=== PATIENT | male | born 1940 | race Hispanic/Latino ===

== ENCOUNTER 2018-01-07 15:38 | Emergency (ER) | payer OTHER ==
[2018-01-07] MEDS ORDERED: ALBUTEROL 2.5 MG/3 ML NEB SOL ONE (16:51)
[2018-01-07] MEDS ORDERED: FUROSEMIDE 40 MG/4 ML VIAL ONE (16:52)
[2018-01-07] MEDS ORDERED: CARVEDILOL 6.25 MG TAB ONE (16:52)
--- NOTE | 2018-01-07 16:55 | RAD REPORT ---
EXAM DESCRIPTION: RAD - Chest Single View - 01/07/2018 4:37 pm CLINICAL HISTORY: Dyspnea, hypertension COMPARISON: November 2016 TECHNIQUE: AP portable chest image was obtained 1623 hours . FINDINGS: No peripheral mass or consolidation. Lung markings are similar to the comparison. Cardiac silhouette has enlarged slightly. No vascular engorgement or acute findings of failure. Trachea is mi dline. Sternotomy wires are in place. No measurable pleural effusion and no pneumothorax. No gross [place] abnormality seen. No acute aortic findings suspected. IMPRESSION: No acute cardiopulmonary process. Mild cardiomegaly is present increased slightly from comparison. Acute failure or volume overload not suspected.
[2018-01-07 17:01] LABS: Absolute Lymphocytes (CBC) 2.5 K/uL (0.7-4.9); Absolute Monocytes 0.5 K/uL (0.1-1.3); Basophils % 0.7 % (0-1.3); Eosinophils % 4.2 % (0-4.4); Hematocrit 37.3 % (39.6-49.0); Lymphocytes % 39.8 % (15.3-44.8); MCH 31.6 pg (27.0-35.0); MCV 96.5 fL (80-100); MPV 7.9 fL (7.6-11.3); Monocytes % 7.7 % (3.3-12.3); RBC Red Blood Cell Count 3.87 M/uL (4.33-5.43)
[2018-01-07 17:04] LABS: Protime INR 1.05
[2018-01-07 17:24] LABS: ALT/SGPT 21 U/L (12-78); AST/SGOT 14 U/L (15-37); Albumin 3.7 g/dL (3.4-5.0); Alkaline Phosphatase 78 U/L (45-117); BUN Blood Urea Nitrogen 15 mg/dL (7-18); Bicarbonate 28 mmol/L (21-32); Bilirubin Direct 0.1 mg/dL (0-0.2); Bilirubin Total 0.5 mg/dL (0.2-1.0); Glucose Level 112 mg/dL (74-106); Magnesium 2.3 mg/dL (1.8-2.4); NT PRO-BNP 725 pg/mL (<450); Potassium 3.4 mmol/L (3.5-5.1); Protein, Total 7.7 g/dL (6.4-8.2); Sodium Level 138 mmol/L (136-145)
--- NOTE | 2018-01-07 17:31 | ER ---
Nurse's Notes [facility] Name: Elliot Magallanes Age: 77 yrs Sex: Male : 1940 Arrival Date: 01/07/2018 Time: 15:42 Bed 5 Private MD: Diagnosis: Wheezing;Essential (primary) hypertension Presentation: 01/07 15:42 Presenting complaint: Patient states: went to my PCP today, at the clinic my BP was hj over 200's, when i went home, my BP was at 175's; denies headache; denies chest pain; was advised to go the the ED for eval;. Transition of care: patient was not received from another setting of care. Onset of symptoms was January 07, 2018. Risk Assessment: Do you want to hurt yourself or someone else? Patient reports no desire to harm self or others. Initial Sepsis Screen: Does the patient meet any 2 criteria? No. Patient's initial sepsis screen is negative. Does the patient have a suspected source of infection? No. Patient's initial sepsis screen is negative. Care prior to arrival: None. 15:42 Method Of Arrival: Ambulatory 15:42 Acuity: SYLVESTER 3 hj Triage Assessment: 15:47 General: Appears in no apparent distress. uncomfortable, Behavior is calm, cooperative, hj appropriate for age. Pain: Denies pain. Historical: - Allergies: 15:47 No Known Allergies; hj - Home Meds: 15:47 amlodipine 10 mg tab 1 tab once daily [Active]; Eliquis 2.5 mg oral tab 1 tab 2 times hj per day [Active]; aspirin 81 mg Oral TbEC 1 tab once daily [Active]; atorvastatin 40 mg oral tab 1 tab once daily [Active]; carvedilol 25 mg oral tab 1 tab 2 times per day [Active]; ferrous sulfate 325 mg (65 mg iron) Oral tab [Active]; metformin 500 mg Oral tab 1 tab 2 times per day [Active]; hydralazine 25 mg Oral tab 1 tab 4 times per day [Active]; losartan-hydrochlorothiazide 100-12.5 mg oral tab 1 tab once daily [Active]; Lasix 20 mg Oral tab 1 tab once daily [Active]; - PMHx: 15:47 Hypertension; Hyperlipidemia; Diabetes - NIDDM; CHF; hj - 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 - Social history:: Smoking status: Patient/guardian denies using tobacco, Patient/guardian denies using alcohol. - Ebola Screening: : Patient negative for fever greater than or equal to 101.5 degrees Fahrenheit, and additional compatible Ebola Virus Disease symptoms Patient denies exposure to infectious person Patient denies travel to an Ebola-affected area in the 21 days before illness onset. Screenin:48 Abuse screen: Denies threats or abuse. Denies injuries from another. Nutritional hj screening: No deficits noted. Tuberculosis screening: No symptoms or risk factors identified. Fall Risk None identified. Assessment: 15:59 General: Appears in no apparent distress. comfortable, Behavior is calm, cooperative, ch appropriate for age. Pain: Denies pain. Neuro: No deficits noted. Cardiovascular: Heart tones S1 S2 present Capillary refill < 3 seconds in bilateral fingers toes Clubbing of nail beds is present JVD is present Patient's skin is warm and dry. Pulses are all present. Edema is 2+ to left midcalf, left ankle, right midcalf and right ankle pitting to left midcalf, left ankle, right midcalf and right ankle. Respiratory: Reports cough that is productive, Airway is patent Respiratory effort is even, labored, Breath sounds are coarse Breath sounds with crackles Breath sounds with wheezes bilaterally. GI: No signs and/or symptoms were reported involving the gastrointestinal system. Derm: Skin is pink, warm \T\ dry. Musculoskeletal: No signs and/or symptoms reported regarding the musculoskeletal system. 16:59 Reassessment: Patient appears in no apparent distress at this time. No changes from previously documented assessment. Patient and/or family updated on plan of care and expected duration. Pain level reassessed. 17:58 Reassessment: Patient appears in no apparent distress at this time. Patient and/or family updated on plan of care and expected duration. Pain level reassessed. Patient is alert, oriented x 3, equal unlabored respirations, skin warm/dry/pink. Patient denies pain at this time. Patient states feeling better. Patient states symptoms have improved. Vital Signs: 15:47 BP 185 / 71; Pulse 72; Resp 18; Temp 98.6(O); Pulse Ox 94% on R/A; Weight 105.69 kg; hj Height 6 ft. 0 in. (182.88 cm); Pain 0/10; 17:01 BP 162 / 77; Pulse 63; Resp 24; Temp 98.5; Pulse Ox 99% on Nebulizer Mask; Pain 0/10; ch 17:58 BP 172 / 88; Pulse 71; Resp 20; Temp 98.3; Pulse Ox 96% on R/A; Pain 0/10; ch 15:47 Body Mass Index 31.60 (105.69 kg, 182.88 cm) hj ED Course: 15:42 Patient arrived in ED. mr 15:44 Violette Rodriguez, RN is Primary Nurse. ch 15:44 Triage completed. hj 15:48 Arm band placed on right wrist. hj 15:48 Patient has correct armband on for positive identification. Placed in gown. Bed in low hj position. Call light in reach. Side rails up X 1. Adult w/ patient. 15:50 security monitor on. Pulse ox on. NIBP on. ch 15:50 Warm blanket given. ch 15:51 Alberto Rios MD is Attending Physician. gs 15:58 Chente Mariano PA is PHCP. jr8 16:20 EKG done, by technical project coordinator. reviewed by Chente ADAME. sm3 16:33 X-ray completed. Portable x-ray completed in exam room. Patient tolerated procedure kp1 well. 16:35 Inserted saline lock: 18 gauge in right forearm, using aseptic technique. Blood ch collected. 16:36 XRAY Chest (1 view) In Process Unspecified. EDMS 16:59 Lab(s) recollected, by ED staff, sent to lab. ch 18:00 No provider procedures requiring assistance completed. IV discontinued, intact, ch bleeding controlled, No redness/swelling at site. Pressure dressing applied. 18:36 Primary Nurse role handed off by Violette Rodriguez, RN ag Administered Medications: 17:00 Drug: Albuterol 2.5 mg Route: Inhalation; ch 17:00 Drug: Lasix 40 mg Route: IVP; Site: right forearm; ch 18:01 Follow up: Response: No adverse reaction; Marked relief of symptoms ch 17:00 Drug: carvedilol 25 mg Route: PO; ch 18:01 Follow up: Response: No adverse reaction; Marked relief of symptoms ch 17:20 Drug: Albuterol 2.5 mg Route: Inhalation; 17:35 Drug: Albuterol 2.5 mg Route: Inhalation; 18:02 Follow up: Response: No adverse reaction; Marked relief of symptoms Outcome: 17:29 Discharge ordered by MD. zuniga 18:00 Discharged to home ambulatory, with family. 18:00 Condition: improved 18:00 Discharge instructions given to patient, family, Instructed on discharge instructions, follow up and referral plans. no drinking with medication, medication usage, Demonstrated understanding of instructions, follow-up care, medications, Prescriptions given X 4. 18:00 Patient left the ED. 18:38 Patient left the ED. ag Signatures: Dispatcher [employer] EDMS Violette Rodriguez, BRAD RN Yolis Vargas mr Chente Mariano PA PA jr8 Gallardo, Ana Vishal Pederson RN RN Hannah Stoddard 1 Alberto Rios MD MD gs Montes, Shakira 3
--- NOTE | 2018-01-07 17:31 | EDPHYS ---
Physician Documentation [facility] Name: Elliot Magallanes Age: 77 yrs Sex: Male : 1940 Arrival Date: 01/07/2018 Time: 15:42 Bed 5 Private MD: ED Physician Alberto Rios HPI: 01/07 16:21 This 77 yrs old Male presents to ER via Ambulatory with complaints of High jr8 Blood Pressure. 16:21 Onset: The symptoms/episode began/occurred at an unknown time. Associated signs and jr8 symptoms: The patient has no apparent associated signs or symptoms. Severity of symptoms: At its worst the blood pressure was moderate, in the emergency department the blood pressure is improved. history of HTN. The patient has been recently seen by a physician:. Patient stated that he has had slight wheeze in chest for the past couple of days. Feels as if he has cold. Had gone to PCP office today and noticed he had elevated BP and sent him to ED for further evaluation. Denies CP or shortness of breath currently. Stated that he has been out of his carvedilol and lasix for about 1 week . Historical: - Allergies: 15:47 No Known Allergies; hj - Home Meds: 15:47 amlodipine 10 mg tab 1 tab once daily [Active]; Eliquis 2.5 mg oral tab 1 tab 2 times hj per day [Active]; aspirin 81 mg Oral TbEC 1 tab once daily [Active]; atorvastatin 40 mg oral tab 1 tab once daily [Active]; carvedilol 25 mg oral tab 1 tab 2 times per day [Active]; ferrous sulfate 325 mg (65 mg iron) Oral tab [Active]; metformin 500 mg Oral tab 1 tab 2 times per day [Active]; hydralazine 25 mg Oral tab 1 tab 4 times per day [Active]; losartan-hydrochlorothiazide 100-12.5 mg oral tab 1 tab once daily [Active]; Lasix 20 mg Oral tab 1 tab once daily [Active]; - PMHx: 15:47 Hypertension; Hyperlipidemia; Diabetes - NIDDM; CHF; hj - 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 - Social history:: Smoking status: Patient/guardian denies using tobacco, Patient/guardian denies using alcohol. - Ebola Screening: : Patient negative for fever greater than or equal to 101.5 degrees Fahrenheit, and additional compatible Ebola Virus Disease symptoms Patient denies exposure to infectious person Patient denies travel to an Ebola-affected area in the 21 days before illness onset. ROS: 16:21 Eyes: Negative for injury, pain, redness, and discharge, ENT: Negative for injury, jr8 pain, and discharge, Neck: Negative for injury, pain, and swelling, Cardiovascular: Negative for chest pain, palpitations, and edema, Abdomen/GI: Negative for abdominal pain, nausea, vomiting, diarrhea, and constipation, Back: Negative for injury and pain, MS/Extremity: Negative for injury and deformity, Skin: Negative for injury, rash, and discoloration, Neuro: Negative for headache, weakness, numbness, tingling, and seizure. 16:21 Respiratory: Positive for wheezing, Negative for cough, dyspnea on exertion, hemoptysis, orthopnea, shortness of breath. Exam: 16:21 Eyes: Pupils equal round and reactive to light, extra-ocular motions intact. Lids and jr8 lashes normal. Conjunctiva and sclera are non-icteric and not injected. Cornea within normal limits. Periorbital areas with no swelling, redness, or edema. ENT: Nares patent. No nasal discharge, no septal abnormalities noted. Tympanic membranes are normal and external auditory canals are clear. Oropharynx with no redness, swelling, or masses, exudates, or evidence of obstruction, uvula midline. Mucous membranes moist. Neck: Trachea midline, no thyromegaly or masses palpated, and no cervical lymphadenopathy. Supple, full range of motion without nuchal rigidity, or vertebral point tenderness. No Meningismus. Abdomen/GI: Soft, non-tender, with normal bowel sounds. No distension or tympany. No guarding or rebound. No evidence of tenderness throughout. Back: No spinal tenderness. No costovertebral tenderness. Full range of motion. Skin: Warm, dry with normal turgor. Normal color with no rashes, no lesions, and no evidence of cellulitis. MS/ Extremity: Pulses equal, no cyanosis. Neurovascular intact. Full, normal range of motion. Neuro: Awake and alert, GCS 15, oriented to person, place, time, and situation. Cranial nerves II-XII grossly intact. Motor strength 5/5 in all extremities. Sensory grossly intact. Cerebellar exam normal. Normal gait. 16:21 Cardiovascular: Rate: normal, Rhythm: regular, Pulses: Pulses are 2+ in right radial artery and left radial artery. Heart sounds: normal, normal S1and S2, no S3 or S4, no murmur, no rub, no gallop, Edema: 2+ edema to level of left midcalf, left ankle, right midcalf and right ankle, JVD: is not appreciated. 16:21 Respiratory: the patient does not display signs of respiratory distress, Respirations: normal, symetrical, no use of accessory muscles, no grunting, no evidence of nasal flaring, no prolonged exhalations, no pursed lip breathing, no retractions, no shallow respirations, no splinting, no tachypnea, Breath sounds: wheezing: expiratory that is mild, is heard diffusely. 16:53 ECG was reviewed by the Attending Physician. [facility] Vital Signs: 15:47 BP 185 / 71; Pulse 72; Resp 18; Temp 98.6(O); Pulse Ox 94% on R/A; Weight 105.69 kg; hj Height 6 ft. 0 in. (182.88 cm); Pain 0/10; 17:01 BP 162 / 77; Pulse 63; Resp 24; Temp 98.5; Pulse Ox 99% on Nebulizer Mask; Pain 0/10; ch 17:58 BP 172 / 88; Pulse 71; Resp 20; Temp 98.3; Pulse Ox 96% on R/A; Pain 0/10; ch 15:47 Body Mass Index 31.60 (105.69 kg, 182.88 cm) MDM: 16:01 Patient medically screened. [facility] 17:27 Data reviewed: vital signs, nurses notes, lab test result(s), EKG, radiologic studies, 8 plain films, and as a result, I will discharge patient. Data interpreted: Pulse oximetry: on room air is 99 %. Interpretation: normal. Counseling: I had a detailed discussion with the patient and/or guardian regarding: the historical points, exam findings, and any diagnostic results supporting the discharge/admit diagnosis, lab results, radiology results, the need for outpatient follow up, a family practitioner, to return to the emergency department if symptoms worsen or persist or if there are any questions or concerns that arise at home. Response to treatment: the patient's symptoms have markedly improved after treatment. ED course: Patient still without shortness of breath, chest pain, dizziness, visual disturbances, nausea, numbness, or tingling. Will send home on medication to help with wheezing. Will prescribe blood pressure medication and lasix for him to insure he is taking those as prescribed by his PCP . 01/07 16:07 Order name: Basic Metabolic Panel; Complete Time: 17:24 01/07 16:07 Order name: CBC with Diff; Complete Time: 17:05 01/07 16:07 Order name: LFT's; Complete Time: 17:24 01/07 16:07 Order name: Magnesium; Complete Time: 17:24 01/07 16:07 Order name: NT PRO-BNP; Complete Time: 17:24 01/07 16:07 Order name: PT-INR; Complete Time: 17:05 01/07 16:07 Order name: XRAY Chest (1 view); Complete Time: 16:58 01/07 16:07 Order name: EKG; Complete Time: 16:08 01/07 16:07 Order name: Cardiac monitoring; Complete Time: 18:02 01/07 17:32 Order name: Urine Dipstick--Ancillary (enter results); Complete Time: 17:53 1 01/07 16:07 Order name: EKG - Nurse/Tech; Complete Time: 18:02 01/07 16:07 Order name: IV Saline Lock; Complete Time: 18:02 01/07 16:07 Order name: Labs collected and sent; Complete Time: 18:02 01/07 16:07 Order name: O2 Per Protocol; Complete Time: 18:02 01/07 16:07 Order name: O2 Sat Monitoring; Complete Time: 18:02 01/07 16:07 Order name: Urine Dipstick-Ancillary (obtain specimen); Complete Time: 17:31 jr8 EC:53 Rate is 70 beats/min. Rhythm is regular, Sinus Rhythm. [place] interval is prolonged at 270 jr8 msec. QRS interval is normal at 92 msec. QT interval is prolonged at 466 msec. No Q waves. T waves are Normal. No ST changes noted. Clinical impression: 1st degree heart block. Interpreted by me. Reviewed by me. Administered Medications: 17:00 Drug: Albuterol 2.5 mg Route: Inhalation; 17:00 Drug: Lasix 40 mg Route: IVP; Site: right forearm; 18:01 Follow up: Response: No adverse reaction; Marked relief of symptoms ch 17:00 Drug: carvedilol 25 mg Route: PO; ch 18:01 Follow up: Response: No adverse reaction; Marked relief of symptoms ch 17:20 Drug: Albuterol 2.5 mg Route: Inhalation; ch 17:35 Drug: Albuterol 2.5 mg Route: Inhalation; 18:02 Follow up: Response: No adverse reaction; Marked relief of symptoms Disposition: 21:14 Co-signature as Attending Physician, Alberto Rios MD. Disposition: 01/07/18 17:29 Discharged to Home. Impression: Wheezing, Essential (primary) hypertension. - Condition is Stable. - Discharge Instructions: Acute Bronchitis, Hypertension. - Prescriptions for carvedilol 25 mg Oral tablet - take 1 tablet by ORAL route every 12 hours with food; 60 tablet. Norvasc 10 mg Oral Tablet - take 1 tablet by ORAL route once daily; 30 tablet. Lasix 20 mg Oral Tablet - take 1 tablet by ORAL route once daily; 20 tablet. Albuterol Sulfate 90 mcg/actuation - inhale 1-2 puff by INHALATION route every 4-6 hours; 1 Inhaler. - Medication Reconciliation Form, Thank You Letter, Antibiotic Education, Prescription Opioid Use form. - Follow up: Private Physician; When: 5 - 6 days; Reason: Recheck today's complaints, Continuance of care, Re-evaluation by your physician. - Problem is new. - Symptoms have improved. Signatures: Dispatcher [employer] EDNC Violette Rodriguez, RN RN Chente Cortes PA PA jr8 Emily Arias Henry RN RN Alberto Talbot MD MD Corrections: (The following items were deleted from the chart) 16:13 16:08 TROPONIN (EMERG DEPT USE ONLY)+C.LAB.BRZ ordered. EDNC EDMS 16:24 16:21 Patient stated that he has had slight wheeze in chest for the past couple of jr8 days. Feels as if he has cold. Had gone to PCP office today and noticed he had elevated BP and sent him to ED for further evaluation. Denies CP or shortness of breath currently . jr8 18:00 17:29 01/07/2018 17:29 Discharged to Home. Impression: Wheezing; Essential (primary) ch hypertension. Condition is Stable. Forms are Medication Reconciliation Form, Thank You Letter, Antibiotic Education, Prescription Opioid Use. Follow up: Private Physician; When: 5 - 6 days; Reason: Recheck today's complaints, Continuance of care, Re-evaluation by your physician. Problem is new. Symptoms have improved. 8 18:38 18:00 01/07/2018 17:29 Discharged to Home. Impression: Wheezing; Essential (primary) ag hypertension. Condition is Stable. Discharge Instructions: Acute Bronchitis, Hypertension. Prescriptions for carvedilol 25 mg Oral tablet - take 1 tablet by ORAL route every 12 hours with food; 60 tablet, Norvasc 10 mg Oral Tablet - take 1 tablet by ORAL route once daily; 30 tablet, Lasix 20 mg Oral Tablet - take 1 tablet by ORAL route once daily; 20 tablet, Albuterol Sulfate 90 mcg/actuation - inhale 1-2 puff by INHALATION route every 4-6 hours; 1 Inhaler. and Forms are Medication Reconciliation Form, Thank You Letter, Antibiotic Education, Prescription Opioid Use. Follow up: Private Physician; When: 5 - 6 days; Reason: Recheck today's complaints, Continuance of care, Re-evaluation by your physician. Problem is new. Symptoms have improved. ch
[2018-01-07 17:51] LABS: Urine Blood NEGATIVE (NEG); Urine Glucose NEGATIVE (NEG); Urine Protein TRACE (NEG); Urine Specific Gravity 1.015 (1.005-1.030)
--- NOTE | 2018-01-07 22:13 | EKG ---
Test Date: 2018-01-07 Test Time: 16:14:57 Mail Opener: MARISEL MEASUREMENT RESULTS: Intervals: Rate: 70 [place]: 270 QRSD: 92 QT: 432 QTc: 466 [place]: P: 21 [place]: 270 QRS: -4 T: 29 INTERPRETIVE STATEMENTS: Sinus rhythm with sinus arrhythmia with 1st degree AV block Otherwise normal ECG No previous ECG available for comparison Electronically Signed On 01-07-18 22:12:31 CDT by Mario Alberto Levine
== END 2018-01-07 18:38 | disposition home or self-care (01) ==
LOC: ER 15:38
DX: I10 Essential (primary) hypertension (principal); E11.9 Type 2 diabetes mellitus without complications; E78.5 Hyperlipidemia, unspecified; I50.9 Heart failure, unspecified; Z95.1 Presence of aortocoronary bypass graft; Z79.01 Long term (current) use of anticoagulants; Z79.82 Long term (current) use of aspirin
CPT/HCPCS: 36415; 71045; 80048; 80076; 81003; 83735; 83880; 85025; 85610; 93005; 96374; 99285